=== PATIENT | female | born 1960 | race African-American/Black ===

== ENCOUNTER 2019-06-14 13:27 | Inpatient (IN) | payer MEDICARE, MEDICAID ==
[~2019-06-14] VITALS: Ht 170.2 cm; Wt 71.7 kg
[~2019-06-14 13:27] MED LIST: ASPIRIN PO; BENAZEPRIL; GLIP10TA10 PO; HCTZ; METFORMIN PO; TRAMADOL PO
[2019-06-14] MEDS ORDERED: SODIUM CHLORIDE 0.9% 1000ML BAG (SEPSIS BOLUS) IV ONE (14:00)
[2019-06-14] MEDS ORDERED: PIPERACILLIN/TAZ 3.375G PREMIX 50 ML IV ONE (14:00)
[2019-06-14] MEDS ORDERED: VANCOMYCIN 1 G PREMIX 200 ML IV ONE (14:00)
[2019-06-14 14:39] LABS: CHLORIDE 119 mEq/L (98-107); INR 1.4; PROTHROMBIN TIME 13.7 sec (9.6-11.0)
[2019-06-14 14:42] LABS: BASOPHILS % 0.3 % (0.0-2.0); EOSINOPHILS % 0.1 % (0.0-5.0); HEMATOCRIT. 43.3 % (36.0-48.0); HEMOGLOBIN. 14.1 g/dL (12.0-16.0); MEAN CORPUSCULAR HEMOGLOBIN 29.7 pg (28.0-32.0); MEAN CORPUSCULAR VOLUME 91.1 fL (81.0-99.0); MEAN PLATELET VOLUME 9.5 fl (7.4-10.4); MONOCYTES % 6.9 % (2.0-8.0); NEUTROPHILS % 75.7 % (40.0-76.0); PLATELET 317 x1000/uL (130-400); RED BLOOD CELL COUNT 4.75 mill/uL (4.2-5.4); RED CELL DISTRIBUTION WIDTH 14.1 % (11.6-14.6)
[2019-06-14] MEDS ORDERED: AZITHROMYCIN 500 MG in DEXT 5% WATER 250 ML IV STA (16:25)
[2019-06-14] MEDS ORDERED: NOREPINEPHRINE 4MG/250ML PMX 250 ML IV ONE (17:45)
[2019-06-14] MEDS ORDERED: ACETAMINOPHEN 650MG SUPP PR ONE (18:00)
[2019-06-14] MEDS ORDERED: ASPIRIN 81MG TABLET PO ONE (18:00)
[2019-06-14 18:01] LABS: CLARITY URINE TURBID (CLEAR); COLOR URINE YELLOW (YELLOW); KETONES URINE NEGATIVE (NEGATIVE); LEUKOCYTE ESTERASE URINE NEGATIVE (NEGATIVE); NITRITE URINE NEGATIVE (NEGATIVE); OCCULT BLOOD URINE 1+ (NEGATIVE); PROTEIN URINE 2+ (NEGATIVE); SPECIFIC GRAVITY URINE 1.032 (1.005-1.030)
[2019-06-14] MEDS ORDERED: MORPHINE SULFATE 2 MG/ML CPJ (NOT FOR IM USE) IV PRN (22:15)
[2019-06-14] MEDS ORDERED: HYDROCODONE/ACETAMINOPHEN 5/325MG TABLET PO PRN (22:15)
[2019-06-14] MEDS ORDERED: LORAZEPAM 2MG/ML CPJ IV PRN (22:15)
[2019-06-14] MEDS ORDERED: IPRATROPIUM/ALBUTEROL 0.5-3(2.5)MG/3ML NEB NEB PRN (22:15)
[2019-06-14] MEDS ORDERED: ONDANSETRON HCL 4MG/2ML INJ IV PRN (22:15)
[2019-06-14] MEDS ORDERED: CEFTRIAXONE 1 G PREMIX 50 ML IV SCH (22:30)
[2019-06-14] MEDS: ENOXAPARIN 40MG/0.4ML SYR SUBCUT SCH (22:50)
[2019-06-15 06:41] LABS: CREATINE KINASE MB FRACTION 4.3 ng/mL (0.5-3.6)
[2019-06-15] MEDS: SODIUM CHLORIDE 0.9% 1,000 ML IV SCH ×3 (08:08→18:08)
[2019-06-15] MEDS: FOLIC ACID 1MG TABLET PO SCH (09:00)
[2019-06-15] MEDS ORDERED: CYAN100096 PO (09:09)
[2019-06-15] MEDS ORDERED: AMLO10TA80 PO (09:09)
[2019-06-15] MEDS ORDERED: ATOR-2 PO (09:09)
[2019-06-15] MEDS ORDERED: GABA-531 PO (09:09)
[2019-06-15 11:49] LABS: LDL CHOLESTEROL 51 mg/dL (5-100)
[2019-06-15 11:50] LABS: ETHANOL BLOOD < 10 mg/dL
[2019-06-15 11:51] LABS: HDL CHOLESTEROL 22 mg/dL (40-59); T4 FREE 0.91 ng/dL (0.76-1.46)
[2019-06-15 12:04] LABS: *AMPHETAMINES SCREEN URINE NEGATIVE (NEGATIVE); *BARBITURATES SCREEN URINE NEGATIVE (NEGATIVE); *BENZODIAZEPINES SCREEN URINE NEGATIVE (NEGATIVE)
[2019-06-15 12:05] LABS: *COCAINE SCREEN URINE NEGATIVE (NEGATIVE); CANNABINOID URINE SCREEN NEGATIVE (NEGATIVE); METHADONE URINE SCREEN NEGATIVE (NEGATIVE); OPIATES URINE SCREEN NEGATIVE (NEGATIVE); PHENCYCLIDINE URINE SCREEN NEGATIVE (NEGATIVE)
[2019-06-15 13:49] LABS: FOLIC ACID (FOLATE) SERUM 9.2 ng/mL (>5.38)
[2019-06-15 15:24] LABS: CREATINE KINASE MB FRACTION 8.9 ng/mL (0.5-3.6)
[2019-06-15] MEDS: MIDODRINE HCL 5MG TABLET PO SCH (17:27)
[2019-06-15] MEDS ORDERED: CEFTRIAXONE 1 G PREMIX 50 ML IV SCH (23:00)
[2019-06-16] MEDS: ENOXAPARIN 40MG/0.4ML SYR SUBCUT SCH ×2 (00:43→23:06)
[2019-06-16 06:07] LABS: BASOPHILS % 0.5 % (0.0-2.0); EOSINOPHILS % 0.2 % (0.0-5.0); HEMATOCRIT. 33.6 % (36.0-48.0); HEMOGLOBIN. 10.8 g/dL (12.0-16.0); LYMPHOCYTES % 13.6 % (20.0-50.0); MEAN CORPUSCULAR HEMOGLOBIN 29.1 pg (28.0-32.0); MEAN CORPUSCULAR VOLUME 90.9 fL (81.0-99.0); MEAN PLATELET VOLUME 9.8 fl (7.4-10.4); MONOCYTES % 5.1 % (2.0-8.0); NEUTROPHILS % 80.6 % (40.0-76.0); PLATELET 225 x1000/uL (130-400); RED CELL DISTRIBUTION WIDTH 14.2 % (11.6-14.6)
[2019-06-16 06:13] LABS: CHLORIDE 126 mEq/L (98-107)
[2019-06-16] MEDS ORDERED: CEFTRIAXONE 1 G PREMIX 50 ML IV SCH (07:15)
[2019-06-16] MEDS: ASPIRIN 81MG TABLET PO SCH (09:00)
[2019-06-16] MEDS: FOLIC ACID 1MG TABLET PO SCH (09:00)
[2019-06-16] MEDS: MIDODRINE HCL 5MG TABLET PO SCH ×5 (09:00→17:00)
[2019-06-16] MEDS: FOLIC ACID 1 MG, THIAMINE HCL 100 MG, MVI, ADULT NO.1 10 ML in DEXTROSE 5% WATER 1,000 ML IV ONE ×8 (11:30→16:04)
[2019-06-16] MEDS ORDERED: AZITHROMYCIN 500 MG in DEXT 5% WATER 250 ML IV NR (14:15)
[2019-06-16] MEDS ORDERED: CEFTRIAXONE 2 G PREMIX 50 ML IV ONE (14:30)
[2019-06-16 17:30] VITALS: BP 124/84
[2019-06-16 17:43] VITALS: BP 124/84
[2019-06-16 20:00] VITALS: BP 94/67
[2019-06-16 22:00] VITALS: BP 95/68
[2019-06-17] VITALS (13 sets, daily range): BP systolic 89–114; BP diastolic 54–87
[2019-06-17] MEDS: CEFAZOLIN 2,000 MG in DEXT 5% WATER 100 ML IV SCH ×3 (04:26→21:13)
[2019-06-17] MEDS: DEXTROSE 5% WATER 1,000 ML IV SCH ×2 (12:52→17:34)
[2019-06-17] MEDS ORDERED: AZITHROMYCIN 500 MG in DEXT 5% WATER 250 ML IV SCH (13:00)
[2019-06-17 13:02] LABS: HEMATOCRIT 35.1 % (36.0-48.0); HEMOGLOBIN 11.3 g/dL (12.0-16.0); MEAN CORPUSCULAR HEMOGLOBIN 29.7 pg (28.0-32.0); PLATELET 254 x1000/uL (130-400); RED BLOOD CELL COUNT 3.82 mill/uL (4.2-5.4); RED CELL DISTRIBUTION WIDTH 14.3 % (11.6-14.6)
[2019-06-17 13:12] LABS: CHLORIDE 121 mEq/L (98-107)
[2019-06-17] MEDS: MIDODRINE HCL 5MG TABLET PO SCH ×3 (13:55→17:33)
[2019-06-17] MEDS: ASPIRIN 81MG TABLET PO SCH (13:55)
[2019-06-17] MEDS: FOLIC ACID 1MG TABLET PO SCH (13:56)
[2019-06-17] MEDS ORDERED: POTASSIUM CHLORIDE INJ 40 MEQ in DEXT 5% WATER 250 ML IV NR (17:00)
[2019-06-17] MEDS: ENOXAPARIN 40MG/0.4ML SYR SUBCUT SCH (21:45)
[2019-06-18] VITALS (12 sets, daily range): BP systolic 90–133; BP diastolic 56–79
[2019-06-18] MEDS: DEXTROSE 5% WATER 1,000 ML IV SCH ×4 (03:44→20:33)
[2019-06-18] MEDS: CEFAZOLIN 2,000 MG in DEXT 5% WATER 100 ML IV SCH ×3 (04:01→20:33)
[2019-06-18] MEDS: MIDODRINE HCL 5MG TABLET PO SCH ×3 (08:49→19:05)
[2019-06-18] MEDS: FOLIC ACID 1MG TABLET PO SCH (08:49)
[2019-06-18] MEDS: ASPIRIN 81MG TABLET PO SCH (08:49)
[2019-06-18 10:44] LABS: CHLORIDE 113 mEq/L (98-107)
[2019-06-18] MEDS ORDERED: DEXTROSE 50% WATER 50ML SYRINGE IV PRN (11:15)
[2019-06-18] MEDS: BLOOD SUGAR DIAGNOSTIC STRIP TEST SCH ×3 (11:30→23:11)
[2019-06-18] MEDS ORDERED: POTASSIUM CHLORIDE INJ 40 MEQ in DEXT 5% WATER 250 ML IV NR (12:00)
[2019-06-18] MEDS: INSULIN LISPRO 100 UNITS/ML SUBCUT SCH ×3 (12:39→23:30)
[2019-06-18] MEDS: AZITHROMYCIN 500 MG in DEXT 5% WATER 250 ML IV SCH (13:32)
[2019-06-18 14:16] LABS: BASOPHILS % 0.4 % (0.0-2.0); EOSINOPHILS % 1.9 % (0.0-5.0); HEMATOCRIT. 28.3 % (36.0-48.0); HEMOGLOBIN. 9.3 g/dL (12.0-16.0); LYMPHOCYTES % 25.3 % (20.0-50.0); MEAN CORPUSCULAR HEMOGLOBIN 30.1 pg (28.0-32.0); MEAN CORPUSCULAR VOLUME 91.6 fL (81.0-99.0); MEAN PLATELET VOLUME 9.7 fl (7.4-10.4); NEUTROPHILS % 67.4 % (40.0-76.0); PLATELET 203 x1000/uL (130-400); RED BLOOD CELL COUNT 3.09 mill/uL (4.2-5.4); RED CELL DISTRIBUTION WIDTH 14.4 % (11.6-14.6)
[2019-06-18] MEDS: ENOXAPARIN 40MG/0.4ML SYR SUBCUT SCH (23:11)
[2019-06-19] VITALS (12 sets, daily range): BP systolic 93–133; BP diastolic 43–83
[2019-06-19] MEDS: CEFAZOLIN 2,000 MG in DEXT 5% WATER 100 ML IV SCH ×3 (04:59→21:57)
[2019-06-19] MEDS: BLOOD SUGAR DIAGNOSTIC STRIP TEST SCH ×3 (05:02→17:35)
[2019-06-19] MEDS: INSULIN LISPRO 100 UNITS/ML SUBCUT SCH ×3 (05:09→18:30)
[2019-06-19] MEDS: ASPIRIN 81MG TABLET PO SCH (09:36)
[2019-06-19] MEDS: MIDODRINE HCL 5MG TABLET PO SCH ×3 (09:37→17:51)
[2019-06-19] MEDS: DEXTROSE 5% WATER 1,000 ML IV SCH (09:37)
[2019-06-19] MEDS: FOLIC ACID 1MG TABLET PO SCH (09:37)
[2019-06-19] MEDS: AZITHROMYCIN 500 MG in DEXT 5% WATER 250 ML IV SCH (13:59)
[2019-06-19 16:28] LABS: BASOPHILS % 0.3 % (0.0-2.0); EOSINOPHILS % 1.4 % (0.0-5.0); HEMATOCRIT. 30.9 % (36.0-48.0); HEMOGLOBIN. 10.1 g/dL (12.0-16.0); MEAN CORPUSCULAR HEMOGLOBIN 29.4 pg (28.0-32.0); MEAN CORPUSCULAR VOLUME 89.8 fL (81.0-99.0); MEAN PLATELET VOLUME 9.7 fl (7.4-10.4); MONOCYTES % 3.9 % (2.0-8.0); NEUTROPHILS % 76.4 % (40.0-76.0); PLATELET 238 x1000/uL (130-400); RED BLOOD CELL COUNT 3.44 mill/uL (4.2-5.4)
[2019-06-19 16:45] LABS: CHLORIDE 111 mEq/L (98-107)
[2019-06-19] MEDS: ENOXAPARIN 40MG/0.4ML SYR SUBCUT SCH (21:58)
[2019-06-20] VITALS (13 sets, daily range): BP systolic 99–125; BP diastolic 44–83
[2019-06-20] MEDS: BLOOD SUGAR DIAGNOSTIC STRIP TEST SCH ×4 (00:54→17:23)
[2019-06-20] MEDS: INSULIN LISPRO 100 UNITS/ML SUBCUT SCH ×4 (06:00→17:23)
[2019-06-20 06:13] LABS: BASOPHILS % 0.4 % (0.0-2.0); EOSINOPHILS % 1.9 % (0.0-5.0); HEMATOCRIT. 31.9 % (36.0-48.0); HEMOGLOBIN. 10.4 g/dL (12.0-16.0); LYMPHOCYTES % 20.7 % (20.0-50.0); MEAN CORPUSCULAR HEMOGLOBIN 29.3 pg (28.0-32.0); MEAN CORPUSCULAR VOLUME 89.6 fL (81.0-99.0); MEAN PLATELET VOLUME 9.7 fl (7.4-10.4); MONOCYTES % 4.7 % (2.0-8.0); NEUTROPHILS % 72.3 % (40.0-76.0); PLATELET 234 x1000/uL (130-400); RED BLOOD CELL COUNT 3.56 mill/uL (4.2-5.4); RED CELL DISTRIBUTION WIDTH 14.2 % (11.6-14.6)
[2019-06-20] MEDS: DEXTROSE 5% WATER 1,000 ML IV SCH (06:22)
[2019-06-20] MEDS: CEFAZOLIN 2,000 MG in DEXT 5% WATER 100 ML IV SCH ×3 (06:22→21:39)
[2019-06-20 06:37] LABS: CHLORIDE 111 mEq/L (98-107)
[2019-06-20 06:53] LABS: PHOSPHORUS 2.3 mg/dL (2.5-4.9)
[2019-06-20] MEDS: FOLIC ACID 1MG TABLET PO SCH (10:59)
[2019-06-20] MEDS: ASPIRIN 81MG TABLET PO SCH (10:59)
[2019-06-20] MEDS: MIDODRINE HCL 5MG TABLET PO SCH ×3 (10:59→17:23)
[2019-06-20] MEDS: AZITHROMYCIN 500 MG in DEXT 5% WATER 250 ML IV SCH (14:00)
[2019-06-20] MEDS: ENOXAPARIN 40MG/0.4ML SYR SUBCUT SCH (21:39)
[2019-06-21] VITALS (13 sets, daily range): BP systolic 92–117; BP diastolic 59–72
[2019-06-21] MEDS: BLOOD SUGAR DIAGNOSTIC STRIP TEST SCH ×4 (00:01→17:17)
[2019-06-21] MEDS: CEFAZOLIN 2,000 MG in DEXT 5% WATER 100 ML IV SCH ×3 (04:37→21:50)
[2019-06-21] MEDS: INSULIN LISPRO 100 UNITS/ML SUBCUT SCH ×4 (06:00→17:24)
[2019-06-21 06:16] LABS: CHLORIDE 110 mEq/L (98-107)
[2019-06-21 06:21] LABS: BASOPHILS % 0.5 % (0.0-2.0); EOSINOPHILS % 2.8 % (0.0-5.0); HEMATOCRIT. 27.9 % (36.0-48.0); HEMOGLOBIN. 9.1 g/dL (12.0-16.0); LYMPHOCYTES % 28.2 % (20.0-50.0); MEAN CORPUSCULAR HEMOGLOBIN 29.3 pg (28.0-32.0); MEAN CORPUSCULAR VOLUME 89.9 fL (81.0-99.0); MEAN PLATELET VOLUME 9.4 fl (7.4-10.4); MONOCYTES % 5.7 % (2.0-8.0); NEUTROPHILS % 62.8 % (40.0-76.0); PLATELET 247 x1000/uL (130-400); RED BLOOD CELL COUNT 3.11 mill/uL (4.2-5.4); RED CELL DISTRIBUTION WIDTH 14.3 % (11.6-14.6)
[2019-06-21] MEDS: ZINC SULFATE 220 MG ( 50 ) CAPSULE PO SCH (09:23)
[2019-06-21] MEDS: FOLIC ACID 1MG TABLET PO SCH (09:23)
[2019-06-21] MEDS: MIDODRINE HCL 5MG TABLET PO SCH ×3 (09:24→17:17)
[2019-06-21] MEDS: ASPIRIN 81MG TABLET PO SCH (09:24)
[2019-06-21] MEDS: ASCORBIC ACID 500 MG TABLET PO SCH (09:24)
[2019-06-21] MEDS: AZITHROMYCIN 500 MG in DEXT 5% WATER 250 ML IV SCH (13:32)
[2019-06-22] VITALS (11 sets, daily range): BP systolic 103–119; BP diastolic 66–86
[2019-06-22] MEDS: BLOOD SUGAR DIAGNOSTIC STRIP TEST SCH ×5 (00:30→23:50)
[2019-06-22] MEDS: CEFAZOLIN 2,000 MG in DEXT 5% WATER 100 ML IV SCH ×3 (05:59→23:08)
[2019-06-22] MEDS: INSULIN LISPRO 100 UNITS/ML SUBCUT SCH ×5 (06:00→23:50)
[2019-06-22 07:12] LABS: BASOPHILS % 0.7 % (0.0-2.0); EOSINOPHILS % 2.3 % (0.0-5.0); HEMATOCRIT. 31.8 % (36.0-48.0); HEMOGLOBIN. 10.1 g/dL (12.0-16.0); LYMPHOCYTES % 21.9 % (20.0-50.0); MEAN CORPUSCULAR HEMOGLOBIN 29.3 pg (28.0-32.0); MEAN CORPUSCULAR VOLUME 92.4 fL (81.0-99.0); MEAN PLATELET VOLUME 9.9 fl (7.4-10.4); NEUTROPHILS % 69.1 % (40.0-76.0); PLATELET 293 x1000/uL (130-400); RED BLOOD CELL COUNT 3.45 mill/uL (4.2-5.4); RED CELL DISTRIBUTION WIDTH 14.4 % (11.6-14.6)
[2019-06-22 07:30] LABS: CHLORIDE 109 mEq/L (98-107)
[2019-06-22 07:41] LABS: PARTIAL THROMBOPLASTIN TIME 22.9 sec (23.4-31.0); PROTHROMBIN TIME 10.7 sec (9.6-11.0)
[2019-06-22] MEDS: MIDODRINE HCL 5MG TABLET PO SCH ×3 (08:38→17:56)
[2019-06-22] MEDS: ASCORBIC ACID 500 MG TABLET PO SCH ×2 (08:38→14:23)
[2019-06-22] MEDS: ZINC SULFATE 220 MG ( 50 ) CAPSULE PO SCH ×2 (08:38→14:23)
[2019-06-22] MEDS: FOLIC ACID 1MG TABLET PO SCH ×2 (08:38→14:23)
[2019-06-22] MEDS ORDERED: FENTANYL CITRATE/PF 50MCG/ML 2ML VIAL ONE (11:34)
[2019-06-22] MEDS ORDERED: MIDAZOLAM HCL 5 MG/5 ML VIAL ONE (11:34)
[2019-06-22] MEDS ORDERED: FENTANYL CITRATE/PF 50MCG/ML 2ML VIAL IV PRN (11:35)
[2019-06-22] MEDS ORDERED: MIDAZOLAM HCL 5 MG/5 ML VIAL IV PRN (11:36)
[2019-06-22] MEDS ORDERED: OMEPRAZOLE 20MG CAPSULE EXTENDED RELEASE PO SCH (12:15)
[2019-06-22] MEDS: AZITHROMYCIN 500 MG in DEXT 5% WATER 250 ML IV SCH (14:28)
[2019-06-23] VITALS (10 sets, daily range): BP systolic 105–124; BP diastolic 64–88
[2019-06-23] MEDS: CEFAZOLIN 2,000 MG in DEXT 5% WATER 100 ML IV SCH ×2 (05:03→13:00)
[2019-06-23] MEDS: BLOOD SUGAR DIAGNOSTIC STRIP TEST SCH ×3 (06:00→17:38)
[2019-06-23] MEDS: INSULIN LISPRO 100 UNITS/ML SUBCUT SCH ×3 (06:00→18:00)
[2019-06-23 07:14] LABS: BASOPHILS % 0.5 % (0.0-2.0); EOSINOPHILS % 1.8 % (0.0-5.0); HEMATOCRIT. 26.4 % (36.0-48.0); HEMOGLOBIN. 8.7 g/dL (12.0-16.0); LYMPHOCYTES % 29.5 % (20.0-50.0); MEAN CORPUSCULAR VOLUME 91.2 fL (81.0-99.0); MEAN PLATELET VOLUME 9.3 fl (7.4-10.4); MONOCYTES % 5.9 % (2.0-8.0); NEUTROPHILS % 62.3 % (40.0-76.0); PLATELET 297 x1000/uL (130-400); RED BLOOD CELL COUNT 2.89 mill/uL (4.2-5.4); RED CELL DISTRIBUTION WIDTH 14.7 % (11.6-14.6)
[2019-06-23 07:25] LABS: CHLORIDE 105 mEq/L (98-107)
[2019-06-23] MEDS ORDERED: OMEPRAZOLE 20MG CAPSULE EXTENDED RELEASE PO SCH (07:30)
[2019-06-23] MEDS: FOLIC ACID 1MG TABLET PO SCH (09:21)
[2019-06-23] MEDS: ASCORBIC ACID 500 MG TABLET PO SCH (09:21)
[2019-06-23] MEDS: MIDODRINE HCL 5MG TABLET PO SCH ×3 (09:21→17:49)
[2019-06-23] MEDS: ZINC SULFATE 220 MG ( 50 ) CAPSULE PO SCH (09:22)
== END 2019-06-23 21:10 | DRG 871 ==
LOC: ER 13:27 → 5EST 06-15 18:04 → EDBEDREQSVC 06-16 11:21 → EDBEDREQTM 06-16 11:21 → EDBEDREQDT 06-16 11:21 → ENRESERV 06-16 16:06
PROVIDERS: ADMIT Internal Medicine Nephrology; ATTEND Internal Medicine Nephrology
PROC: 06HY33Z Insertion of Infusion Device into Lower Vein, Percutaneous Approach (ICD-10-PCS; 2019-06-15)
PROC: B54BZZA Ultrasonography of Right Lower Extremity Veins, Guidance (ICD-10-PCS; 2019-06-15)
PROC: 4A10X4Z Monitoring of Central Nervous Electrical Activity, External Approach (ICD-10-PCS; principal; 2019-06-19)
PROC: 0DH63UZ Insertion of Feeding Device into Stomach, Percutaneous Approach (ICD-10-PCS; 2019-06-22)
DX: A41.50 Gram-negative sepsis, unspecified (principal); E43 Unspecified severe protein-calorie malnutrition; J18.9 Pneumonia, unspecified organism; R65.21 Severe sepsis with septic shock; G92 Toxic encephalopathy; G82.50 Quadriplegia, unspecified; E87.0 Hyperosmolality and hypernatremia; N39.0 Urinary tract infection, site not specified; E87.2 Acidosis; E87.1 Hypo-osmolality and hyponatremia; I69.354 Hemiplegia and hemiparesis following cerebral infarction affecting left non-dominant side; K57.92 Diverticulitis of intestine, part unspecified, without perforation or abscess without bleeding; E87.8 Other disorders of electrolyte and fluid balance, not elsewhere classified; E78.5 Hyperlipidemia, unspecified; E78.00 Pure hypercholesterolemia, unspecified; F03.90 Unspecified dementia, unspecified severity, without behavioral disturbance, psychotic disturbance, mood disturbance, and anxiety; D50.9 Iron deficiency anemia, unspecified; E87.6 Hypokalemia; E11.51 Type 2 diabetes mellitus with diabetic peripheral angiopathy without gangrene; L89.309 Pressure ulcer of unspecified buttock, unspecified stage; R13.10 Dysphagia, unspecified; L89.159 Pressure ulcer of sacral region, unspecified stage; I10 Essential (primary) hypertension; D63.8 Anemia in other chronic diseases classified elsewhere; R13.12 Dysphagia, oropharyngeal phase; L89.220 Pressure ulcer of left hip, unstageable; L89.210 Pressure ulcer of right hip, unstageable; L89.899 Pressure ulcer of other site, unspecified stage; K25.9 Gastric ulcer, unspecified as acute or chronic, without hemorrhage or perforation; R74.0 Nonspecific elevation of levels of transaminase and lactic acid dehydrogenase [LDH]; I69.320 Aphasia following cerebral infarction; Z74.01 Bed confinement status; Z79.4 Long term (current) use of insulin; Z93.1 Gastrostomy status; Z79.899 Other long term (current) drug therapy; Z79.82 Long term (current) use of aspirin; Z68.24 Body mass index [BMI] 24.0-24.9, adult
CPT/HCPCS: 36415; 36556; 70551; 71045; 76700; 80048; 80076; 80305; 81003; 82962; 83605; 83735; 83880; 84100; 84145; 84484; 85027; 86677; 87077; 87186; 88305; 88312; 88313; 92523; 92610; 93005; 93306; 93923; 97161; 97167; 99291; J0456; J0690; J0696; J1650; J1815; J2250; J2405; J2543; J3010; J3370; J3411; J3480; J3490; J7030; J7040; J7060; J7070